=== PATIENT | male | born 1995 | race Caucasian/White ===

== ENCOUNTER 2018-12-28 17:26 | Emergency (ER) | payer MEDICAID ==
[~2018-12-28] VITALS: Ht 182.9 cm; Wt 65.9 kg
[2018-12-28] MEDS ORDERED: D-ME237L19 PO (17:45)
[2018-12-28] MEDS ORDERED: MUPIROCIN CALCIUM 2% 15 GM CREAM TP ONE (18:45)
[2018-12-28 19:07] VITALS: BP 128/72
== END 2018-12-28 19:08 | disposition home or self-care (01) ==
LOC: EDBD 17:26 → EMS 17:26
DX: S81.801A Unspecified open wound, right lower leg, initial encounter (principal); F15.90 Other stimulant use, unspecified, uncomplicated; F17.210 Nicotine dependence, cigarettes, uncomplicated; X58.XXXA Exposure to other specified factors, initial encounter; Y93.89 Activity, other specified; Y92.89 Other specified places as the place of occurrence of the external cause; Y99.8 Other external cause status
CPT/HCPCS: 99406